=== PATIENT | female | born 1970 | race Caucasian/White ===

== ENCOUNTER 2019-03-15 10:08 | Emergency (ER) | payer OTHER ==
[~2019-03-15] VITALS: Ht 175.3 cm; Wt 67.3 kg
[2019-03-15 10:14] VITALS: TEMP 97.3
[2019-03-15 12:15] LABS: COLLECTION METHOD CLEAN CATCH
[2019-03-15 12:20] LABS: PH 6 (5-8); SQUAMOUS EPITHELIAL 0-2 /hpf; URINE APPEARANCE Clear; URINE BACTERIA None Seen /hpf; URINE BILIRUBIN Negative (NEGATIVE); URINE BLOOD Negative (NEGATIVE); URINE COLOR Straw; URINE GLUCOSE Negative (NEGATIVE); URINE KETONE Negative (NEGATIVE); URINE LEUKOCYTE ESTERASE Negative (NEGATIVE); URINE NITRATE Negative (NEGATIVE); URINE PROTEIN(semi-quant) Negative (NEGATIVE); URINE RBC None Seen /hpf; URINE UROBILINOGEN Negative (NEGATIVE)
[2019-03-15 12:27] VITALS: BP 108/54
[2019-03-15 12:46] LABS: BASO # 0.1 (0.0-0.2); BASO % 0.9 % (0.0-2.0); EOS # 0.1 (0.0-0.7); EOS % 0.7 % (0-4.0); GRAN # 4.2 (1.4-6.5); GRAN % 60.4 % (42.2-75.2); HEMATOCRIT 37.6 % (37.0-47.0); HEMOGLOBIN 12.1 g/dl (12.5-16.0); LYMPH # 2.1 (1.2-3.4); MEAN CELL VOLUME 91 fl (80.0-100.0); MEAN CORPUSCULAR HEMOGLOBIN 29 pg (27.0-31.0); MEAN CORPUSCULAR HGB CONC 32 g/dl (33.0-37.0); MEAN PLATELET VOLUME 10.4 fl (7.4-10.4); MONO # 0.5 (0.1-0.6); MONO % 6.7 % (1.7-9.3); PLATELET COUNT 368 K/mm3 (130-400); RED BLOOD COUNT 4.15 M/mm3 (4.10-5.30); REDCELL DISTRIBUTION WIDTH-CV 15.4 % (11.5-14.5)
[2019-03-15 13:00] LABS: ALANINE AMINOTRANSFERASE 13 U/L (9-52); ALKALINE PHOSPHATASE 79 U/L (50-136); ANION GAP 9 mmol/L (7-16); AST,SGOT 31 U/L (15-37); BILIRUBIN,TOTAL 0.2 mg/dL (0.0-1.0); BLOOD UREA NITROGEN 11 mg/dL (7-17); CALCIUM 8.8 mg/dL (8.4-10.2); CARBON DIOXIDE 27 mmol/L (22-30); CHLORIDE 105 mmol/L (98-107); CREATININE, serum 0.53 (0.52-1.25); GLUCOSE 98 mg/dL (74-106); POTASSIUM 3.5 mmol/L (3.4-5.0); SODIUM 141 mmol/L (137-145); TOTAL PROTEIN 7.6 gm/dL (6.4-8.2)
[2019-03-15 13:05] LABS: C-REACTIVE PROTEIN < 0.5 mg/dL (0.0-0.9)
[2019-03-15] MEDS ORDERED: ANTIVERT 12.512.5 MG PO (13:21)
[2019-03-15] MEDS ORDERED: CEPHALEXIN500 M1 PO (13:33)
[2019-03-15 14:17] VITALS: PULSE 78
[2019-03-15] MEDS ORDERED: DESYREL 100MG100 MG PO (14:17)
[2019-03-15] MEDS ORDERED: MIRAPEX 0.0.125 MG/T PO (14:17)
== END 2019-03-15 14:21 | disposition home or self-care (01) ==
LOC: COL.ER 10:08
PROVIDERS: Physician Assistant
DX: R42 Dizziness and giddiness (principal); Z98.890 Other specified postprocedural states; Z88.0 Allergy status to penicillin
CPT/HCPCS: J2060; J7030

== ENCOUNTER 2019-07-12 09:00 | Outpatient (RCR) | payer OTHER ==
[~2019-07-12 09:00] MED LIST: ANTIVERT 12.512.5 MG PO; CEPHALEXIN500 M1 PO; DESYREL 100MG100 MG PO; MIRAPEX 0.0.125 MG/T PO
== END 2019-08-15 | disposition home or self-care (01) ==
LOC: WSC
DX: M54.5 Low back pain (principal); M25.559 Pain in unspecified hip

== ENCOUNTER → 2019-07-13 | Outpatient (CLI) | payer OTHER | LOC: COL.RAD 12:56 | DX: Z02.71 Encounter for disability determination (principal); M17.11 Unilateral primary osteoarthritis, right knee; M11.261 Other chondrocalcinosis, right knee; Z98.890 Other specified postprocedural states ==

== ENCOUNTER → 2019-09-07 | Outpatient (CLI) | payer OTHER | LOC: COL.RAD 10:41 | DX: M50.30 Other cervical disc degeneration, unspecified cervical region (principal) ==

== ENCOUNTER 2019-10-17 12:45 | Outpatient (CLI) | payer OTHER ==
[~2019-10-17] VITALS: Ht 175.3 cm; Wt 73.4 kg
[~2019-10-17 12:45] MED LIST changes: +CYMBALTA 60MG60 MG PO; +MOBIC15 MG PO; +ZANAFLEX 4MG TAB4 MG PO
[2019-10-17 13:00] VITALS: BP 150/72; PULSE 90
[2019-10-17 13:38] VITALS: BP 106/56; PULSE 60
[2019-10-17 13:40] VITALS: BP 106/56; PULSE 60
--- NOTE | 2019-10-17 13:40 | NUR ---
Transferred by cart from Radiology. Alert and oriented. Bandaid to back CD&I. VSS. bedside
[2019-10-17 13:55] VITALS: BP 102/56; PULSE 58
[2019-10-17 14:10] VITALS: BP 101/58; PULSE 60
[2019-10-17 14:52] VITALS: BP 102/58; PULSE 62
--- NOTE | 2019-10-17 14:53 | NUR ---
Ambulated to bathroom with steady gait, no c/o headache. Discharge instructions given. Transferred to private car by yoselin
== END 2019-10-17 14:54 | disposition home or self-care (01) ==
LOC: COL.RAD 12:45
DX: M54.5 Low back pain (principal); Z98.1 Arthrodesis status
CPT/HCPCS: Q9965

== ENCOUNTER → 2019-11-23 | Outpatient (CLI) | payer OTHER | LOC: MHCPAIN 07:43 | DX: M53.3 Sacrococcygeal disorders, not elsewhere classified (principal); M54.16 Radiculopathy, lumbar region; M96.1 Postlaminectomy syndrome, not elsewhere classified | CPT/HCPCS: G0463 ==

== ENCOUNTER 2019-12-12 09:00 | Outpatient (RCR) | payer OTHER ==
[2019-12-30] MEDS ORDERED: PROTONIX 40MG T40 MG PO (07:35)
[2019-12-30] MEDS ORDERED: MIRAPEX 0.0.125 MG/T PO (07:36)
[2019-12-30] MEDS ORDERED: AMBIEN 5MG TABLE5 MG PO (07:37)
[2019-12-30] MEDS ORDERED: PERCOCET 325 MG1 TA2 PO (07:38)
== END 2020-02-08 13:03 | disposition home or self-care (01) ==
LOC: WSC 09:00
DX: M47.27 Other spondylosis with radiculopathy, lumbosacral region (principal); M53.3 Sacrococcygeal disorders, not elsewhere classified; M96.1 Postlaminectomy syndrome, not elsewhere classified

== ENCOUNTER 2019-12-30 07:19 | Day surgery (SDC) | payer OTHER ==
[~2019-12-30] VITALS: Ht 175.3 cm; Wt 75.1 kg
[2019-12-30] MEDS ORDERED: PROTONIX 40MG T40 MG PO (07:35)
[2019-12-30] MEDS ORDERED: MIRAPEX 0.0.125 MG/T PO (07:36)
[2019-12-30] MEDS ORDERED: AMBIEN 5MG TABLE5 MG PO (07:37)
[2019-12-30] MEDS ORDERED: PERCOCET 325 MG1 TA2 PO (07:38)
[2019-12-30 07:42] VITALS: BP 103/51; PULSE 73; TEMP 97.9
[2019-12-30 09:10] VITALS: BP 101/39; PULSE 64
--- NOTE | 2019-12-30 09:10 | NUR ---
Patient returns to room 3 per cart after having EGD and transfers from cart to recliner with two person assist. IV fluids infusing and site is free of redness. Temp 97.8 and room air ats 98%. Friend in room. Taking water without difficulty swallowing and denies pain or nausea. Allowed to rest.
[2019-12-30 09:25] VITALS: BP 100/63; PULSE 59
--- NOTE | 2019-12-30 09:25 | NUR ---
Eating muffin and drinking water. Denies difficulty swallowing. IV fluids continue to infuse.
[2019-12-30 09:40] VITALS: BP 99/47; PULSE 55
--- NOTE | 2019-12-30 09:40 | NUR ---
Tolerated muffin and water. IV discontinued and patient dresses self. Dr. Robert talked with friend prior to patient returning to room.
--- NOTE | 2019-12-30 09:50 | NUR ---
Dismissal instructions signed and voices understanding of home cares and follow up. Instructed that Dr. Robert's office will call with appointment dates and times.
--- NOTE | 2019-12-30 09:53 | NUR ---
Patient discharged to home per private vehicle driven by friend and taken to the front door per wheelchair and assisted into car with dismissal instructions in hand.
[2019-12-30 10:16] VITALS: BP 101/59; PULSE 62
== END 2019-12-30 09:53 | disposition home or self-care (01) ==
LOC: SDCO 07:19
DX: R11.2 Nausea with vomiting, unspecified (principal); R10.13 Epigastric pain; D64.9 Anemia, unspecified; E07.9 Disorder of thyroid, unspecified; K44.9 Diaphragmatic hernia without obstruction or gangrene; K59.00 Constipation, unspecified; Z88.0 Allergy status to penicillin; Z79.891 Long term (current) use of opiate analgesic; Z90.710 Acquired absence of both cervix and uterus
CPT/HCPCS: J2250; J2405; J3010; J7030

== ENCOUNTER → 2020-03-27 | Outpatient (CLI) | payer OTHER ==
[~2020-03-27] MED LIST changes: +AMBIEN 5MG TABLE5 MG PO; +PERCOCET 325 MG1 TA2 PO; +PROTONIX 40MG T40 MG PO
== END ==
LOC: MHCPAIN 09:20
DX: M47.817 Spondylosis without myelopathy or radiculopathy, lumbosacral region (principal); M54.5 Low back pain; M96.1 Postlaminectomy syndrome, not elsewhere classified; M54.16 Radiculopathy, lumbar region; G89.29 Other chronic pain
CPT/HCPCS: G0463

== ENCOUNTER → 2020-04-27 | Outpatient (CLI) | payer OTHER | LOC: COL.RAD 11:08 | DX: M47.812 Spondylosis without myelopathy or radiculopathy, cervical region (principal); M47.816 Spondylosis without myelopathy or radiculopathy, lumbar region; D47.2 Monoclonal gammopathy ==

== ENCOUNTER 2020-05-16 11:00 | Outpatient (RCR) | payer OTHER | END 2020-06-12 10:56 | disposition home or self-care (01) | LOC: WSOT 11:00 | DX: M79.641 Pain in right hand (principal); M79.642 Pain in left hand ==

== ENCOUNTER → 2020-05-29 | Outpatient (CLI) | payer OTHER | LOC: MHCPAIN 12:53 | DX: M47.817 Spondylosis without myelopathy or radiculopathy, lumbosacral region (principal); M54.2 Cervicalgia; M54.6 Pain in thoracic spine; M54.5 Low back pain; M96.1 Postlaminectomy syndrome, not elsewhere classified | CPT/HCPCS: G0463 ==

== ENCOUNTER → 2020-05-30 | Outpatient (CLI) | payer OTHER | LOC: COL.RAD 08:41 | DX: M79.644 Pain in right finger(s) (principal); M79.642 Pain in left hand | CPT/HCPCS: J3301; Q9967 ==

== ENCOUNTER → 2020-06-04 | Outpatient (CLI) | payer OTHER | LOC: MHCPAIN 09:10 | DX: M79.18 Myalgia, other site (principal); M54.2 Cervicalgia; M54.6 Pain in thoracic spine | CPT/HCPCS: J1040 ==

== ENCOUNTER → 2020-07-09 | Outpatient (CLI) | payer OTHER | LOC: MHCPAIN 10:25 | DX: M47.817 Spondylosis without myelopathy or radiculopathy, lumbosacral region (principal); M53.3 Sacrococcygeal disorders, not elsewhere classified; M96.1 Postlaminectomy syndrome, not elsewhere classified; M54.16 Radiculopathy, lumbar region; G89.29 Other chronic pain | CPT/HCPCS: G0463 ==

== ENCOUNTER → 2020-10-01 | Outpatient (CLI) | payer BC | LOC: MHCPAIN 09:09 | DX: M47.817 Spondylosis without myelopathy or radiculopathy, lumbosacral region (principal); M54.5 Low back pain; M96.1 Postlaminectomy syndrome, not elsewhere classified; G89.29 Other chronic pain | CPT/HCPCS: G0463 ==

== ENCOUNTER → 2020-10-29 | Outpatient (CLI) | payer BC | LOC: COL.RAD 11:02 | DX: R44.8 Other symptoms and signs involving general sensations and perceptions (principal); R20.0 Anesthesia of skin | CPT/HCPCS: Q9967 ==

== ENCOUNTER → 2020-11-09 | Outpatient (CLI) | payer BC | LOC: COL.RAD 10:08 | DX: G45.9 Transient cerebral ischemic attack, unspecified (principal); Z90.13 Acquired absence of bilateral breasts and nipples; Z98.890 Other specified postprocedural states; Z90.710 Acquired absence of both cervix and uterus | CPT/HCPCS: Q9967 ==

== ENCOUNTER → 2020-11-21 | Outpatient (CLI) | payer BC | LOC: COL.RAD 13:52 | DX: I77.3 Arterial fibromuscular dysplasia (principal) ==

== ENCOUNTER 2020-11-30 08:59 | Outpatient (RCR) | payer BC, OTHER ==
[2021-03-19] MEDS ORDERED: WELLBUTRIN XL300 M1 PO (11:10)
[2021-03-19] MEDS ORDERED: ARAVA10 MG PO (11:11)
[2021-03-19] MEDS ORDERED: FLEXERIL5 MG PO (11:12)
[2021-03-19] MEDS ORDERED: SENNA-LAX8.6 MG PO (11:13)
[2021-03-19] MEDS ORDERED: ASPIRIN 81M81 MG/TA2 PO (11:15)
== END 2021-02-28 | disposition home or self-care (01) ==
LOC: WSOT
DX: M79.641 Pain in right hand (principal); M79.642 Pain in left hand

== ENCOUNTER → 2020-12-04 | Outpatient (CLI) | payer BC | LOC: MHCPAIN 10:21 | DX: M47.816 Spondylosis without myelopathy or radiculopathy, lumbar region (principal); M96.1 Postlaminectomy syndrome, not elsewhere classified; M54.5 Low back pain; G89.29 Other chronic pain | CPT/HCPCS: G0463 ==

== ENCOUNTER → 2021-03-11 | Outpatient (CLI) | payer BC ==
[~2021-03-11] MED LIST changes: +ARAVA10 MG PO; +ASPIRIN 81M81 MG/TA2 PO; +FLEXERIL5 MG PO; +SENNA-LAX8.6 MG PO; +WELLBUTRIN XL300 M1 PO
== END ==
LOC: MHCPAIN 08:55
DX: M54.5 Low back pain (principal); M96.1 Postlaminectomy syndrome, not elsewhere classified; M54.6 Pain in thoracic spine; G89.29 Other chronic pain
CPT/HCPCS: G0463

== ENCOUNTER 2021-03-22 06:53 | Outpatient (CLI) | payer BC, OTHER ==
[~2021-03-22] VITALS: Ht 175.3 cm; Wt 75.9 kg
[2021-03-22 07:23] VITALS: BP 104/64; PULSE 85
[2021-03-22 08:50] VITALS: BP 102/38; PULSE 67
[2021-03-22 08:59] VITALS: BP 102/35; PULSE 73
[2021-03-22 09:30] VITALS: BP 103/40; PULSE 66
[2021-03-22 10:00] VITALS: BP 102/36; PULSE 72
--- NOTE | 2021-03-22 10:15 | NUR ---
pt discharged via w/c to car with friend
== END 2021-03-22 10:15 | disposition home or self-care (01) ==
LOC: COL.RAD 06:53
DX: M47.812 Spondylosis without myelopathy or radiculopathy, cervical region (principal); M43.12 Spondylolisthesis, cervical region; M51.34 Other intervertebral disc degeneration, thoracic region; M48.04 Spinal stenosis, thoracic region
CPT/HCPCS: Q9967

== ENCOUNTER → 2021-04-03 | Outpatient (CLI) | payer BC, OTHER | LOC: MHCPAIN 07:55 | DX: M54.6 Pain in thoracic spine (principal); M79.18 Myalgia, other site | CPT/HCPCS: J1040 ==

== ENCOUNTER → 2021-05-08 | Outpatient (CLI) | payer BC | LOC: COL.RAD 11:56 | DX: G43.709 Chronic migraine without aura, not intractable, without status migrainosus (principal); M54.81 Occipital neuralgia | CPT/HCPCS: A9585 ==

== ENCOUNTER → 2021-05-10 | Outpatient (CLI) | payer BC | LOC: COL.RAD 11:49 | DX: G43.709 Chronic migraine without aura, not intractable, without status migrainosus (principal); M54.81 Occipital neuralgia ==

== ENCOUNTER → 2021-06-05 | Outpatient (CLI) | payer BC, OTHER | LOC: COL.RAD 08:28 | DX: R06.02 Shortness of breath (principal); R05 Cough; R79.1 Abnormal coagulation profile; Z98.82 Breast implant status | CPT/HCPCS: Q9967 ==

== ENCOUNTER → 2021-06-11 | Outpatient (CLI) | payer BC, OTHER | LOC: MHCPAIN 09:24 | DX: M54.81 Occipital neuralgia (principal); M54.5 Low back pain; M96.1 Postlaminectomy syndrome, not elsewhere classified; M54.2 Cervicalgia; R51.9 Headache, unspecified | CPT/HCPCS: G0463 ==

== ENCOUNTER → 2021-06-19 | Outpatient (CLI) | payer BC, OTHER | LOC: MHCPAIN 13:19 | DX: M54.81 Occipital neuralgia (principal); M79.2 Neuralgia and neuritis, unspecified; R51.9 Headache, unspecified | CPT/HCPCS: J1040 ==

== ENCOUNTER → 2021-06-28 | Outpatient (CLI) | payer BC, OTHER | LOC: MC.RAD 10:00 | DX: N60.42 Mammary duct ectasia of left breast (principal); N60.41 Mammary duct ectasia of right breast; N64.89 Other specified disorders of breast ==

== ENCOUNTER → 2021-07-24 | Outpatient (CLI) | payer BC | LOC: MHCPAIN 08:27 | DX: M47.812 Spondylosis without myelopathy or radiculopathy, cervical region (principal); M54.2 Cervicalgia; R51.9 Headache, unspecified; G89.29 Other chronic pain | CPT/HCPCS: G0463 ==

== ENCOUNTER → 2021-08-05 | Outpatient (CLI) | payer BC, OTHER | LOC: MHCPAIN 13:28 | DX: M47.812 Spondylosis without myelopathy or radiculopathy, cervical region (principal); M54.12 Radiculopathy, cervical region; R51.9 Headache, unspecified | CPT/HCPCS: J1100; Q9967 ==

== ENCOUNTER → 2021-08-12 | Outpatient (CLI) | payer BC, OTHER | LOC: COL.RAD 08:44 | DX: D47.2 Monoclonal gammopathy (principal); G89.4 Chronic pain syndrome | CPT/HCPCS: A9503 ==

== ENCOUNTER 2021-08-19 09:30 | Outpatient (RCR) | payer BC, OTHER | END 2021-10-02 | disposition home or self-care (01) | LOC: PT.GENESIS | DX: M54.13 Radiculopathy, cervicothoracic region (principal) ==

== ENCOUNTER → 2021-08-27 | Outpatient (CLI) | payer BC | LOC: MHCPAIN 10:24 | DX: M54.6 Pain in thoracic spine (principal); M54.50 Low back pain, unspecified | CPT/HCPCS: G0463 ==

== ENCOUNTER → 2021-10-16 | Outpatient (CLI) | payer BC, OTHER | LOC: MHCPAIN 13:18 | DX: M47.814 Spondylosis without myelopathy or radiculopathy, thoracic region (principal); M54.14 Radiculopathy, thoracic region; M54.2 Cervicalgia; M54.50 Low back pain, unspecified | CPT/HCPCS: G0463 ==

== ENCOUNTER → 2021-10-30 | Outpatient (CLI) | payer BC, OTHER | LOC: COL.RAD 09:00 | DX: M89.311 Hypertrophy of bone, right shoulder (principal) ==

== ENCOUNTER → 2021-10-31 | Outpatient (CLI) | payer BC, OTHER | LOC: MHCPAIN 09:10 | DX: M47.814 Spondylosis without myelopathy or radiculopathy, thoracic region (principal); M54.13 Radiculopathy, cervicothoracic region | CPT/HCPCS: J1100; Q9967 ==

== ENCOUNTER → 2021-11-25 | Outpatient (CLI) | payer BC | LOC: MHCPAIN 09:30 | DX: M47.817 Spondylosis without myelopathy or radiculopathy, lumbosacral region (principal); M47.814 Spondylosis without myelopathy or radiculopathy, thoracic region; M96.1 Postlaminectomy syndrome, not elsewhere classified | CPT/HCPCS: G0463 ==

== ENCOUNTER 2022-01-24 07:43 | Day surgery (SDC) | payer BC ==
[~2022-01-24] VITALS: Ht 172.7 cm; Wt 75.9 kg
[2022-01-24] MEDS ORDERED: MULTIPLE VITAMI1 TA5 PO (08:20)
[2022-01-24] MEDS ORDERED: PERCOCET 325 MG1 TA3 PO (08:20)
[2022-01-24] MEDS ORDERED: ENBREL50 MG/1 ML SQ (08:27)
--- NOTE | 2022-01-24 09:33 | NUR ---
Initial visit; Security Guard Supervisor offered prayer and enjoyed visiting with patient.
[2022-01-24 10:00] VITALS: BP 92/62; PULSE 79; TEMP 97.2
[2022-01-24 10:15] VITALS: BP 104/49; PULSE 85
[2022-01-24 10:30] VITALS: BP 98/42; PULSE 82
--- NOTE | 2022-01-24 10:50 | NUR ---
1000 PT RETURNED TO BAY 7 VIA CART, TRANSFERD TO CHAIR 2 RN ASSIST. ALERT AND ORIENTED. MONITORS ATTACHED, INTERVALS AND ALARMS SET. PT DENIES DISCOMFORT. COKE AND MUFFIN PROVIDED. 1015 VSS. TOLERATING FOOD ANDRINK WELL. 1030 HAS SPOKE WITH PT. REVIEWED DISCHARGE INSTRUCTIONS AND EDUACTION PACKET, ANSERED ALL QUESTIONS. IV REMOVED WITHOUT COMPLICATION. PT ALLOWED TO DRESS. 1050 PT TRANSFERED VIA WHEELCHAIR TO [facility] TO BE DRIVEN HOME BY FRIEND.
[2022-01-24 12:40] VITALS: BP 95/48; PULSE 78; TEMP 97.1
== END 2022-01-24 10:50 | disposition home or self-care (01) ==
LOC: SDCO 07:43
DX: K29.50 Unspecified chronic gastritis without bleeding (principal); K21.00 Gastro-esophageal reflux disease with esophagitis, without bleeding; K22.4 Dyskinesia of esophagus; K44.9 Diaphragmatic hernia without obstruction or gangrene; D84.9 Immunodeficiency, unspecified; M35.00 Sjogren syndrome, unspecified; Z79.899 Other long term (current) drug therapy; Z87.891 Personal history of nicotine dependence
CPT/HCPCS: J2704; J7030

== ENCOUNTER 2022-06-29 13:17 | Emergency (ER) | payer BC ==
[~2022-06-29] VITALS: Ht 172.7 cm; Wt 61.4 kg
[~2022-06-29 13:17] MED LIST changes: +ENBREL50 MG/1 ML SQ; +MULTIPLE VITAMI1 TA5 PO; +PERCOCET 325 MG1 TA3 PO
[2022-06-29 13:23] VITALS: TEMP 98.2
[2022-06-29 14:30] LABS: BASO # 0.1 K/mm3 (0.0-0.2); BASO % 0.6 % (0.0-2.0); EOS # 0.1 K/mm3 (0.0-0.7); EOS % 0.9 % (0.0-4.0); GRAN # 7.6 K/mm3 (1.4-6.5); GRAN % 72.3 % (42.2-75.2); HEMOGLOBIN 11.2 g/dl (12.5-16.0); LYMPH # 1.9 K/mm3 (1.2-3.4); LYMPH % 18.6 % (20.0-51.0); MEAN CELL VOLUME 94 fl (80.0-100.0); MEAN CORPUSCULAR HEMOGLOBIN 31 pg (27-31); MEAN CORPUSCULAR HGB CONC 33 g/dl (33.0-37.0); MEAN PLATELET VOLUME 9.9 fl (7.4-10.4); MONO # 0.8 K/mm3 (0.1-0.6); MONO % 7.2 % (1.7-9.3); PLATELET COUNT 362 K/mm3 (130-400); RED BLOOD COUNT 3.57 M/mm3 (4.10-5.30); REDCELL DISTRIBUTION WIDTH-CV 13.6 % (11.5-14.5)
[2022-06-29 14:42] LABS: HEMATOCRIT 33.7 % (37.0-47.0)
[2022-06-29 14:44] LABS: COLLECTION METHOD CLEAN CATCH
[2022-06-29 14:50] LABS: BILIRUBIN,TOTAL 0.6 mg/dL (0.2-1.2); C-REACTIVE PROTEIN 13.25 mg/dL (0.00-0.50); CALCIUM 9.7 mg/dL (8.4-10.2); CREATININE, serum 0.74 mg/dL (0.57-1.11); POTASSIUM 3.5 mmol/L (3.5-4.5); TOTAL PROTEIN 7.2 gm/dL (6.2-8.1)
[2022-06-29 15:11] LABS: MUCOUS Present (NOT PRESENT); PH 5.5 (5.0-8.5); SQUAMOUS EPITHELIAL 0-2 /hpf (0-10); URINE APPEARANCE Clear (CLEAR/HAZY); URINE BACTERIA Many /hpf (NONE SEEN); URINE COLOR Yellow (YELLOW); URINE GLUCOSE Negative (NEGATIVE); URINE KETONE 1+ (NEGATIVE); URINE PROTEIN(semi-quant) Negative (NEGATIVE); URINE RBC 0-2 /hpf (0-2); URINE UROBILINOGEN 0.2 E.U/dL (0.2-1.0)
[2022-06-29 15:12] LABS: URINE BLOOD Negative (NEGATIVE); URINE NITRATE Positive (NEGATIVE)
[2022-06-29] MEDS ORDERED: CEFTIN 250250 MG/TAB PO (18:10)
[2022-06-29 18:26] VITALS: BP 99/48; PULSE 84
== END 2022-06-29 18:26 | disposition home or self-care (01) ==
LOC: COL.ER 13:17
PROVIDERS: Nurse Practitioner
DX: M54.6 Pain in thoracic spine (principal); N39.0 Urinary tract infection, site not specified; Z88.1 Allergy status to other antibiotic agents; Z20.822 Contact with and (suspected) exposure to COVID-19
CPT/HCPCS: J0696; J2270; J7030; Q9967

== ENCOUNTER 2023-09-17 08:22 | Emergency (ER) | payer BC ==
[~2023-09-17] VITALS: Ht 172.7 cm; Wt 60.5 kg
[~2023-09-17 08:22] MED LIST changes: +CEFTIN 250250 MG/TAB PO; +CEFTIN500 MG PO; +FLEXERIL 1010 MG/TAB PO; +ULTRAM 50MG TAB50 MG PO
[2023-09-17] MEDS ORDERED: SALAGEN 5MG TAB5 MG PO (08:45)
[2023-09-17] MEDS ORDERED: VALTREX 50500 MG/TAB PO (08:45)
[2023-09-17] MEDS ORDERED: SAVELLA50 MG PO (08:45)
[2023-09-17] MEDS ORDERED: PERCOCET 325 MG1 TA2 PO (09:59)
[2023-09-17 10:14] VITALS: BP 90/54; PULSE 96; TEMP 98.3
== END 2023-09-17 10:16 | disposition home or self-care (01) ==
LOC: COL.ER 08:22
DX: S50.811A Abrasion of right forearm, initial encounter (principal); M54.2 Cervicalgia; M25.511 Pain in right shoulder; M25.521 Pain in right elbow; W01.0XXA Fall on same level from slipping, tripping and stumbling without subsequent striking against object, initial encounter

== ENCOUNTER → 2023-11-03 | Outpatient (CLI) | payer BC ==
[~2023-11-03] MED LIST changes: +SALAGEN 5MG TAB5 MG PO; +SAVELLA50 MG PO; +VALTREX 50500 MG/TAB PO
== END ==
LOC: MC.RAD 16:20
DX: Z12.31 Encounter for screening mammogram for malignant neoplasm of breast (principal)

== ENCOUNTER 2024-04-13 15:45 | Outpatient (RCR) | payer BC, MEDICARE ==
[2024-05-31] MEDS ORDERED: SALAGEN 5MG TAB5 MG PO (13:45)
[2024-05-31] MEDS ORDERED: MIRAPEX 0.0.125 MG/T PO (13:45)
[2024-05-31] MEDS ORDERED: FLEXERIL5 MG PO (13:46)
[2024-05-31] MEDS ORDERED: VALTREX 50500 MG/TAB PO (13:47)
[2024-05-31] MEDS ORDERED: PERC2.5TAB PO (13:47)
[2024-05-31] MEDS ORDERED: FOLIC ACID 11 MG/TA1 PO (13:48)
[2024-05-31] MEDS ORDERED: BIOTIN10000 MCG PO (13:48)
[2024-05-31] MEDS ORDERED: PROBIOTIC BLEN1 EACH PO (13:49)
[2024-05-31] MEDS ORDERED: SENNA-LAX8.6 MG PO (13:49)
== END 2024-04-17 | disposition home or self-care (01) ==
LOC: WSPT
DX: M50.323 Other cervical disc degeneration at C6-C7 level (principal)